=== PATIENT | female | born 1985 | race African-American/Black ===

== ENCOUNTER 2023-03-13 16:01 | Inpatient (IN) | payer SELFPAY ==
[~2023-03-13 16:01] MED LIST: Iopamidol-370 76% 500 ML MDV (1 ML CHARGE) ONE
[2023-03-13] MEDS ORDERED: Cefepime 2 GM VIAL ONE (17:08)
[2023-03-13 17:13] LABS: #Basophils 0.1 thou/uL (0.0-0.2); #Lymphocytes 1.3 thou/uL (1.20-3.40); #Monocytes 1.5 thou/uL (0.11-0.59); %Basophils 0.5 % (0.0-1.0); %Eosinophils 0.3 % (0.0-10.0); %Lymphocytes 9.1 % (21.0-51.0); %Monocytes 10.8 % (0.0-10.0); %Neutrophils 79.2 % (42.0-75.0); Hemoglobin 12.6 g/dL (12.0-16.0); Mean Corpuscular HGB CONC 32.7 g/dL (32.0-36.0); Mean Corpuscular Hemoglobin 27.7 pg (27.0-31.0); Mean Corpuscular Volume 84.6 fl (78.0-98.0); Mean Platelet Volume 7.6 fL (7.4-10.4); Platelet Count 248 10x3/uL (130-400); RBC Distribution Width 12.8 % (11.5-14.5); Red Blood Cell (RBC) Count 4.57 mill/uL (4.20-5.40); White Blood Cell (WBC) Count 13.9 10x3/uL (4.8-10.8)
[2023-03-13] MEDS ORDERED: Vancomycin 1.5 GRAM/300 ML BAG 1.5 GM in Premix Bag 1 BAG IVPB SCH (17:15)
[2023-03-13] MEDS ORDERED: fentaNYL 50 mcg/mL 1 mL Vial ONE (17:28)
[2023-03-13] MEDS ORDERED: Ketorolac Tromethamine 30 MG/ML VIAL ONE (17:28)
[2023-03-13] MEDS ORDERED: Dexamethasone 10 MG/ML VIAL ONE (17:28)
[2023-03-13] MEDS ORDERED: metroNIDAZOLE 500 MG in Premix Bag 1 BAG IVPB SCH (17:30)
[2023-03-13 17:34] LABS: BHCG - Serum Negative (NEGATIVE); Pregs Control Background? CLEAR/WHITE (CLR/WHITE); Pregs Control Bar Appear? YES (CONTROL BAR)
[2023-03-13 17:42] LABS: Anion Gap 16 mmol/L (10-20); BUN (Urea Nitrogen) Less than 4 mg/dL (7.0-18.7); Calc. Creatinine Clearance 0 mL/min (70-130); Calcium 9.1 mg/dL (7.8-10.44); Carbon Dioxide 19 mmol/L (22-29); Chloride 100 mmol/L (98-107); Estimated GFR 115; Glucose 95 mg/dL (70-105); Sodium 131 mmol/L (136-145)
[2023-03-13] MEDS ORDERED: Ondansetron ODT 4 MG TAB PO PRN (18:05)
[2023-03-13] MEDS ORDERED: Ondansetron PF 4 MG/2 ML Vial IVP PRN (18:05)
[2023-03-13] MEDS ORDERED: Acetaminophen 650 MG Suppository PR PRN (18:05)
[2023-03-13] MEDS ORDERED: Acetaminophen 325 MG TAB PO PRN (18:05)
[2023-03-13] MEDS ORDERED: Sodium Chloride 0.9% 1,000 ML IV SCH (18:15)
[2023-03-13] MEDS ORDERED: Fentanyl 100 MCG/2 ML VIAL SLOW IVP PRN (20:00)
[2023-03-13 22:02] VITALS: BMI 22.6
[2023-03-13] MEDS: Chlorhexidine Gluconate 15 ML UDCUP SSP SCH (22:48)
[2023-03-13] MEDS: fentaNYL 50 mcg/mL 1 mL Vial SLOW IVP PRN (22:55)
[2023-03-14] MEDS: Vancomycin 1 GM in Premix Bag 1 BAG IVPB SCH ×3 (00:56→18:50)
[2023-03-14] MEDS: Ketorolac Tromethamine 30 MG/ML VIAL IVP PRN ×3 (00:57→19:02)
[2023-03-14] MEDS: metroNIDAZOLE 500 MG in Premix Bag 1 BAG IVPB SCH ×2 (02:11→12:59)
[2023-03-14] MEDS ORDERED: cefTRIAXone\\ROCEPHIN 2 GM in Sodium Chloride 0.9% 100 ML IVPB SCH (05:00)
[2023-03-14 06:36] LABS: #Lymphocytes 0.9 thou/uL (1.20-3.40); #Monocytes 0.8 thou/uL (0.11-0.59); %Basophils 0.1 % (0.0-1.0); %Eosinophils 0.1 % (0.0-10.0); %Monocytes 5.2 % (0.0-10.0); %Neutrophils 88.6 % (42.0-75.0); Hemoglobin 11.8 g/dL (12.0-16.0); Mean Corpuscular HGB CONC 31.5 g/dL (32.0-36.0); Mean Corpuscular Hemoglobin 26.8 pg (27.0-31.0); Platelet Count 259 10x3/uL (130-400); RBC Distribution Width 12.8 % (11.5-14.5); White Blood Cell (WBC) Count 14.7 10x3/uL (4.8-10.8)
[2023-03-14 06:48] LABS: Anion Gap 14 mmol/L (10-20); BUN (Urea Nitrogen) 5 mg/dL (7.0-18.7); Calc. Creatinine Clearance 119 mL/min (70-130); Calcium 8.8 mg/dL (7.8-10.44); Carbon Dioxide 19 mmol/L (22-29); Chloride 107 mmol/L (98-107); Estimated GFR 116; Glucose 112 mg/dL (70-105); Potassium 4.1 mmol/L (3.5-5.1); Sodium 136 mmol/L (136-145)
[2023-03-14] MEDS: Chlorhexidine Gluconate 15 ML UDCUP SSP SCH ×2 (08:25→20:26)
[2023-03-14] MEDS ORDERED: Nicotine 21 MG PATCH TD SCH (11:00)
[2023-03-14] MEDS: fentaNYL 50 mcg/mL 1 mL Vial SLOW IVP PRN ×2 (11:01→19:35)
[2023-03-14] MEDS ORDERED: fentaNYL 50 mcg/mL 1 mL Vial ONE ×2 (14:14→16:51)
[2023-03-14] MEDS ORDERED: Hydrocortisone 1% Cream 30 GM TUBE ONE (14:24)
[2023-03-14] MEDS ORDERED: EPINEPHrine 1 MG/ML AMP ONE (14:24)
[2023-03-14] MEDS ORDERED: Chlorhexidine Gluconate 15 ML UDCUP SSP ONE (14:24)
[2023-03-14] MEDS ORDERED: Lidocaine 1% (PF) 30 ML VIAL ONE (14:24)
[2023-03-14] MEDS ORDERED: Midazolam HCl 2 mg/2 ml Vial ONE (14:44)
[2023-03-14] MEDS ORDERED: Oxymetazoline HCl 0.05% (30 ML BOT) ONE (14:55)
[2023-03-14] MEDS ORDERED: fentaNYL PF 100 MCG/2 ML SYRINGE ONE (14:59)
[2023-03-14] MEDS ORDERED: Albuterol HFA (OR) 200 PUFF INH ONE (15:05)
[2023-03-14] MEDS ORDERED: NEOSTIGMINE 3 MG/3 ML SYR 3 MG/3 ML SYRINGE ONE (15:05)
[2023-03-14] MEDS ORDERED: Ondansetron PF 4 MG/2 ML Vial ONE (15:05)
[2023-03-14] MEDS ORDERED: Ketorolac Tromethamine 30 MG/ML VIAL ONE (15:05)
[2023-03-14] MEDS ORDERED: Lidocaine 1% PF 5 ML VIAL ONE (15:05)
[2023-03-14] MEDS ORDERED: Dexamethasone 20 MG/5 ML VIAL ONE (15:05)
[2023-03-14] MEDS ORDERED: Glycopyrrolate 0.2 MG/ML 5 ML SYRINGE ONE (15:05)
[2023-03-14] MEDS ORDERED: PROPOFOL 200 MG/20 ML VIAL ONE (15:05)
[2023-03-14] MEDS ORDERED: Rocuronium Bromide 10 MG/ML (10ML VIAL) ONE (15:05)
[2023-03-14] MEDS ORDERED: Clindamycin/D5W 900 mg/50 ml Premix Bag ONE (15:45)
[2023-03-14] MEDS ORDERED: Ondansetron HCl/PF 4 MG/2 ML Vial IVP PRN (16:40)
[2023-03-14] MEDS ORDERED: HYDROmorphone 2 MG/ML VIAL SLOW IVP PRN (16:40)
[2023-03-14] MEDS ORDERED: Promethazine HCl 25 MG/ML VIAL IM PRN (16:40)
[2023-03-14] MEDS ORDERED: HYDROmorphone 0.5 MG/0.5 ML SYRINGE ONE (17:16)
[2023-03-14] MEDS ORDERED: HYDROmorphone 0.5 MG/0.5 ML SYRINGE SLOW IVP SCH (20:45)
[2023-03-15] MEDS ORDERED: HYDROcodone/Acetaminophen 5/325 mg Tablet PO PRN (02:44)
[2023-03-15 05:14] LABS: Anion Gap 12 mmol/L (10-20); BUN (Urea Nitrogen) 6 mg/dL (7.0-18.7); Calc. Creatinine Clearance 110 mL/min (70-130); Calcium 8.3 mg/dL (7.8-10.44); Carbon Dioxide 20 mmol/L (22-29); Chloride 107 mmol/L (98-107); Estimated GFR 114; Glucose 123 mg/dL (70-105); Potassium 4.2 mmol/L (3.5-5.1); Sodium 135 mmol/L (136-145)
[2023-03-15] MEDS: Ampicillin/Sulbactam 3 GM in Sodium Chloride 0.9% 100 ML IVPB SCH ×5 (05:18→23:22)
[2023-03-15] MEDS: Ibuprofen 800 MG TAB PO SCH ×3 (05:20→12:37)
[2023-03-15 05:36] LABS: Band 2 % (5-11); Hemoglobin 10.1 g/dL (12.0-16.0); Lymphocytes 9 % (21-51); MDiff Complete? YES; Mean Corpuscular HGB CONC 33.3 g/dL (32.0-36.0); Mean Corpuscular Hemoglobin 28.3 pg (27.0-31.0); Mean Platelet Volume 7.8 fL (7.4-10.4); Monocytes 1 % (0-10); Neutrophil 88 % (42-75); Platelet Count 228 10x3/uL (130-400); Platelet Morphology Comment Appears Adequate; RBC Distribution Width 12.6 % (11.5-14.5); RBC Morphology Normal; Red Blood Cell (RBC) Count 3.56 mill/uL (4.20-5.40)
[2023-03-15] MEDS: Chlorhexidine Gluconate 15 ML UDCUP SSP SCH ×2 (08:52→20:55)
[2023-03-15] MEDS: Nicotine 21 MG PATCH TD SCH (08:52)
[2023-03-15] MEDS: fentaNYL 50 mcg/mL 1 mL Vial SLOW IVP PRN (09:02)
[2023-03-15] MEDS: Ketorolac Tromethamine 30 MG/ML VIAL IVP PRN (09:03)
[2023-03-15] MEDS ORDERED: HYDROcodone/Acetaminophen 10/325 mg Tablet PO PRN (10:21)
[2023-03-15] MEDS ORDERED: Ketorolac Tromethamine 30 MG/ML VIAL IVP PRN (10:22)
[2023-03-15] MEDS: Dexamethasone 4 mg/ml Vial SLOW IVP SCH (17:25)
[2023-03-15] MEDS: Ketorolac Tromethamine 30 MG/ML VIAL IVP SCH ×2 (17:26→23:20)
[2023-03-15] MEDS: HYDROcodone/Acetaminophen 10/325 mg Tablet PO SCH (20:52)
[2023-03-15] MEDS ORDERED: Dexamethasone 4 mg/ml Vial SLOW IVP SCH (22:00)
[2023-03-16] MEDS: HYDROcodone/Acetaminophen 10/325 mg Tablet PO SCH ×6 (00:39→22:32)
[2023-03-16] MEDS: Ketorolac Tromethamine 30 MG/ML VIAL IVP SCH ×3 (05:24→18:16)
[2023-03-16] MEDS: Ampicillin/Sulbactam 3 GM in Sodium Chloride 0.9% 100 ML IVPB SCH ×3 (05:25→18:14)
[2023-03-16 07:10] LABS: #Lymphocytes 0.8 thou/uL (1.20-3.40); #Monocytes 0.2 thou/uL (0.11-0.59); %Basophils 0.1 % (0.0-1.0); %Eosinophils 0.2 % (0.0-10.0); %Lymphocytes 15.4 % (21.0-51.0); %Monocytes 3.5 % (0.0-10.0); %Neutrophils 80.8 % (42.0-75.0); Hemoglobin 10.2 g/dL (12.0-16.0); Mean Corpuscular HGB CONC 32.4 g/dL (32.0-36.0); Mean Corpuscular Hemoglobin 27.7 pg (27.0-31.0); Mean Corpuscular Volume 85.4 fl (78.0-98.0); Mean Platelet Volume 8.2 fL (7.4-10.4); Platelet Count 275 10x3/uL (130-400); RBC Distribution Width 12.6 % (11.5-14.5)
[2023-03-16] MEDS: Dexamethasone 4 mg/ml Vial SLOW IVP SCH (07:17)
[2023-03-16 07:43] LABS: Anion Gap 12 mmol/L (10-20); BUN (Urea Nitrogen) 4 mg/dL (7.0-18.7); Calc. Creatinine Clearance 119 mL/min (70-130); Calcium 8.1 mg/dL (7.8-10.44); Carbon Dioxide 22 mmol/L (22-29); Chloride 106 mmol/L (98-107); Estimated GFR 116; Glucose 131 mg/dL (70-105); Potassium 3.8 mmol/L (3.5-5.1); Sodium 136 mmol/L (136-145)
[2023-03-16] MEDS: Chlorhexidine Gluconate 15 ML UDCUP SSP SCH ×2 (08:55→22:32)
[2023-03-16] MEDS: Nicotine 21 MG PATCH TD SCH (08:56)
[2023-03-17] MEDS: Ketorolac Tromethamine 30 MG/ML VIAL IVP SCH ×3 (00:48→12:42)
[2023-03-17] MEDS: Ampicillin/Sulbactam 3 GM in Sodium Chloride 0.9% 100 ML IVPB SCH ×3 (00:49→12:42)
[2023-03-17] MEDS: HYDROcodone/Acetaminophen 10/325 mg Tablet PO SCH ×3 (01:40→09:07)
[2023-03-17 06:28] LABS: Hemoglobin 9.9 g/dL (12.0-16.0); Mean Corpuscular HGB CONC 33.9 g/dL (32.0-36.0); Mean Corpuscular Hemoglobin 28.7 pg (27.0-31.0); Mean Corpuscular Volume 84.7 fl (78.0-98.0); Mean Platelet Volume 7.7 fL (7.4-10.4); Platelet Count 247 10x3/uL (130-400); RBC Distribution Width 12.5 % (11.5-14.5); Red Blood Cell (RBC) Count 3.43 mill/uL (4.20-5.40); White Blood Cell (WBC) Count 5.2 10x3/uL (4.8-10.8)
[2023-03-17 06:45] LABS: Anion Gap 11 mmol/L (10-20); BUN (Urea Nitrogen) Less than 4 mg/dL (7.0-18.7); Calc. Creatinine Clearance 121 mL/min (70-130); Carbon Dioxide 25 mmol/L (22-29); Chloride 107 mmol/L (98-107); Estimated GFR 117; Glucose 86 mg/dL (70-105); Potassium 3.5 mmol/L (3.5-5.1); Sodium 139 mmol/L (136-145)
[2023-03-17 08:40] VITALS: BP 133/86; TEMP 98.6
[2023-03-17 08:43] LABS: Lymphocytes 57 % (21-51); MDiff Complete? YES; Monocytes 8 % (0-10); Neutrophil 35 % (42-75); Platelet Morphology Comment Appears Adequate; RBC Morphology Normal
[2023-03-17] MEDS: Chlorhexidine Gluconate 15 ML UDCUP SSP SCH (09:07)
[2023-03-17] MEDS: Nicotine 21 MG PATCH TD SCH (09:08)
== END 2023-03-17 12:26 | disposition home or self-care (01) | DRG 158 ==
LOC: ERS 16:01 → SJJU 17:41
PROVIDERS: ADMIT Internal Medicine; ATTEND Family Medicine
PROC: 0CDXXZ1 Extraction of Lower Tooth, Multiple, External Approach (ICD-10-PCS; principal; 2023-03-14)
PROC: 0CDWXZ1 Extraction of Upper Tooth, Multiple, External Approach (ICD-10-PCS; 2023-03-14)
PROC: 0J910ZZ Drainage of Face Subcutaneous Tissue and Fascia, Open Approach (ICD-10-PCS; 2023-03-14)
DX: K04.7 Periapical abscess without sinus (principal); L03.211 Cellulitis of face; K02.9 Dental caries, unspecified; F17.210 Nicotine dependence, cigarettes, uncomplicated; Z71.6 Tobacco abuse counseling; Z98.51 Tubal ligation status; Z88.6 Allergy status to analgesic agent; Z98.890 Other specified postprocedural states
CPT/HCPCS: 36415; 70487; 80048; 83605; 84703; 85025; 87040; 87070; 87077; 87149; 87205; 96365; 96366; 96367; 96375; J0171; J0295; J0692; J0696; J1100; J1170; J1885; J2001; J2250; J2405; J2704; J3010; J3370; J3370-JW; J3490; J7050; Q9967